=== PATIENT | female | born 1960 | race Caucasian/White ===

== ENCOUNTER 2017-11-20 23:12 | Emergency (ER) | payer BC ==
[2017-11-21 00:11] VITALS: BP 133/83
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
[2017-11-21] MEDS: Ondansetron 4 MG/2 ML SDV IM ONE (01:06)
[2017-11-21] MEDS: Oxymetazoline 0.05% Nasal Spray 15 ML Bottle NAS ONE (01:51)
== END 2017-11-21 01:25 ==
LOC: CC.ED 23:12
DX: R04.0 Epistaxis (principal); E78.00 Pure hypercholesterolemia, unspecified; F17.210 Nicotine dependence, cigarettes, uncomplicated; Z79.899 Other long term (current) drug therapy
CPT/HCPCS: 96372; 99284; J2405

== ENCOUNTER → 2022-11-02 | Day surgery (SDC) | payer BC, OTHER ==
[~2022-11-02] MED LIST: Ketamine 200 MG/20 ML MDV ONE; Lactated Ringers 1,000 ML IV SCH; Midazolam 1 MG/ML 2 ML SDV ONE; Propofol 200 MG/20 ML SDV ONE; fentaNYL 50 MCG/ML SDV ONE
[2022-11-02 12:15] VITALS: BP 138/49; PULSE 53
== END ==
LOC: CC.SDS 06:53
PROVIDERS: ATTEND Family Medicine
DX: D12.2 Benign neoplasm of ascending colon (principal); D12.0 Benign neoplasm of cecum; D12.3 Benign neoplasm of transverse colon; D12.5 Benign neoplasm of sigmoid colon; K57.30 Diverticulosis of large intestine without perforation or abscess without bleeding; K64.8 Other hemorrhoids; E04.1 Nontoxic single thyroid nodule; E11.9 Type 2 diabetes mellitus without complications; E55.9 Vitamin D deficiency, unspecified; I25.10 Atherosclerotic heart disease of native coronary artery without angina pectoris; M19.90 Unspecified osteoarthritis, unspecified site; M81.0 Age-related osteoporosis without current pathological fracture; J45.909 Unspecified asthma, uncomplicated; Z79.899 Other long term (current) drug therapy; Z79.4 Long term (current) use of insulin; Z90.49 Acquired absence of other specified parts of digestive tract; Z98.890 Other specified postprocedural states
CPT/HCPCS: 82947; J2250; J2704; J3010; J3490; J7120

== ENCOUNTER 2023-04-14 08:54 | Emergency (ER) | payer BC ==
[2023-04-14 09:37] VITALS: PULSE 94
[2023-04-14] MEDS ORDERED: Metoprolol Succinate 100 MG Tab.ER PO ONE (09:44)
[2023-04-14 09:51] VITALS: BP 150/90
== END 2023-04-14 10:00 | disposition home or self-care (01) ==
LOC: CC.ED 08:54
DX: I10 Essential (primary) hypertension (principal); R00.0 Tachycardia, unspecified; E78.00 Pure hypercholesterolemia, unspecified; Z72.0 Tobacco use; Z79.899 Other long term (current) drug therapy
CPT/HCPCS: 93005; 99284; A9270; 93010

== ENCOUNTER 2024-02-15 15:28 | Emergency (ER) | payer BC ==
[2024-02-15 15:46] VITALS: BP 116/85; PULSE 89
[2024-02-15] MEDS: methylPREDNISolone Sodium Succinate 125 MG/2 ML SDV IM STA (15:55)
[2024-02-15] MEDS: Cyclobenzaprine 10 MG Tab PO STA (15:55)
[2024-02-15] MEDS: HYDROmorphone 0.5 MG/0.5 ML Syringe SUBCUT STA (15:56)
[2024-02-15] MEDS: Lidocaine 4% 1 each Patch TOP STA (16:01)
[2024-02-15] MEDS: Take Home: Acetaminophen/HYDROcodone 325-5 MG, 2 Tab Pack PO ONE (16:07)
[2024-02-15] MEDS: Take Home: Cyclobenzaprine 10 MG Tab, 4 Tab Pack PO ONE (16:09)
[2024-02-15] MEDS: Take Home: predniSONE 20 MG, 2 Tab Pack PO ONE (16:11)
[2024-02-15] MEDS: Lidocaine 4% 1 each Patch TOP SCH (16:12)
== END 2024-02-15 16:25 | disposition home or self-care (01) ==
LOC: CC.ED 15:28
DX: M54.41 Lumbago with sciatica, right side (principal); E78.00 Pure hypercholesterolemia, unspecified; I10 Essential (primary) hypertension; K21.9 Gastro-esophageal reflux disease without esophagitis; Z79.899 Other long term (current) drug therapy; Z79.51 Long term (current) use of inhaled steroids; Z79.4 Long term (current) use of insulin
CPT/HCPCS: 96372; 99283; A9270; J1170; J2930; J7512; 99284

== ENCOUNTER 2024-04-30 19:56 | Emergency (ER) | payer BC ==
[2024-04-30 20:10] VITALS: BP 142/70; PULSE 74
[2024-04-30] MEDS: Take Home: Acetaminophen/oxyCODONE 325-5 MG, 2 Tab Pack PO ONE (20:39)
== END 2024-04-30 20:45 | disposition home or self-care (01) ==
LOC: CC.ED 19:56
DX: S63.501A Unspecified sprain of right wrist, initial encounter (principal); R07.89 Other chest pain; I10 Essential (primary) hypertension; E78.00 Pure hypercholesterolemia, unspecified; K21.9 Gastro-esophageal reflux disease without esophagitis; E11.9 Type 2 diabetes mellitus without complications; F17.200 Nicotine dependence, unspecified, uncomplicated; Z88.5 Allergy status to narcotic agent; Z79.51 Long term (current) use of inhaled steroids; Z79.4 Long term (current) use of insulin; Z79.899 Other long term (current) drug therapy; W01.0XXA Fall on same level from slipping, tripping and stumbling without subsequent striking against object, initial encounter; Y92.009 Unspecified place in unspecified non-institutional (private) residence as the place of occurrence of the external cause
CPT/HCPCS: 71101-RT; 73110-RT; 99284; A9270-GY